=== PATIENT | female | born 1980 | race Caucasian/White ===

== ENCOUNTER 2017-01-21 22:06 | Emergency (ER) | payer SELFPAY ==
[2017-01-21 22:18] VITALS: BP 174/94
[2017-01-21] MEDS ORDERED: ASPIRIN 81 MG TABLET, CHEWABLE PO ONE (22:34)
[2017-01-21] MEDS ORDERED: ONDANSETRON 4 MG TAB.RAPDIS PO ONE (22:36)
--- NOTE | 2017-01-21 22:36 | ER Document Report ---
ED Medical Screen (RME) - General Chief Complaint: Chest Pain Stated Complaint: CHEST PAIN Time Seen by Provider: 01/21/17 22:34 Mode of Arrival: Wheelchair Information source: Patient Notes: Patient presents complaining of chest pain that she describes as a tightness that started around lunchtime today. Patient reports occasional lightheadedness. Patient does complain of some nausea. Patient denies any vomiting, cough or fever. Patient denies any personal history of heart disease. hx: Vestibular neuritis, GERD, diabetes, dyslipidemia, depression Past Medical History Renal/ Medical History: Denies: Hx Peritoneal Dialysis Physical Exam - Vital signs Vitals: Temp Pulse Resp BP Pulse Ox 98.6 F 71 20 174/94 H 98 01/21/17 22:15 01/21/17 22:15 01/21/17 22:15 01/21/17 22:15 01/21/17 22:15 - Respiratory Respiratory status: No respiratory distress Chest status: Nontender Breath sounds: Normal Chest palpation: Normal - Cardiovascular Rhythm: Regular Heart sounds: S1 appreciated, S2 appreciated Murmur: No Course - Vital Signs Vital signs: Temp Pulse Resp BP Pulse Ox 98.6 F 71 20 174/94 H 98 01/21/17 22:15 01/21/17 22:15 01/21/17 22:15 01/21/17 22:15 01/21/17 22:15
[2017-01-21 23:04] LABS: ABSOLUTE BASOPHILS # (AUTO) 0.1 10^3/uL (0.0-0.2); ABSOLUTE EOSINOPHILS # (AUTO) 0.2 10^3/uL (0.0-0.6); ABSOLUTE LYMPHOCYTES (AUTO) 3.2 10^3/uL (0.5-4.7); ABSOLUTE MONOCYTES (AUTO) 0.5 10^3/uL (0.1-1.4); ABSOLUTE NEUT (AUTO) 7.4 10^3/uL (1.7-8.2); BASOPHILS % (AUTO) 0.6 % (0-2); EOSINOPHILS % (AUTO) 1.6 % (0-6); HEMATOCRIT 40.2 % (36.0-47.0); HEMOGLOBIN 12.8 g/dL (12.0-15.5); HGB HCT DIFFERENCE -1.8; LYMPHOCYTES % (AUTO) 27.7 % (13-45); MEAN CORPUSCULAR HEMOGLOBIN 25.4 pg (27.0-33.4); MEAN CORPUSCULAR HGB CONC 31.9 g/dL (32.0-36.0); MEAN CORPUSCULAR VOLUME 79 fl (80-97); MONOCYTES % (AUTO) 4.7 % (3-13); RED BLOOD COUNT 5.06 10^6/uL (3.72-5.28); RED CELL DISTRIBUTION WIDTH 14.9 % (11.5-14.0); SEGMENTED NEUTROPHILS % (AUTO) 65.4 % (42-78); WHITE BLOOD COUNT 11.4 10^3/uL (4.0-10.5)
[2017-01-21 23:07] LABS: APPEARANCE,URINE CLEAR; BILIRUBIN,URINE NEGATIVE (NEGATIVE); GLUCOSE, URINE NEGATIVE (NEGATIVE); KETONES,URINE NEGATIVE (NEGATIVE); LEUKOCYTE ESTERASE,URINE NEGATIVE (NEGATIVE); NITRITE,URINE NEGATIVE (NEGATIVE); PROTEIN,URINE NEGATIVE (NEGATIVE); URINE SPECIFIC GRAVITY 1.002; UROBILINOGEN,URINE NEGATIVE mg/dL (<2.0)
[2017-01-21 23:22] LABS: ALANINE AMINOTRANSFERASE 40 U/L (9-52); ALBUMIN 4.4 g/dL (3.5-5.0); ALKALINE PHOSPHATASE 93 U/L (38-126); ANION GAP 15 (5-19); ASPARTATE AMINO TRANSFERASE 29 U/L (14-36); BLOOD UREA NITROGEN 10 mg/dL (7-20); CARBON DIOXIDE 26 mmol/L (22-30); CHLORIDE 98 mmol/L (98-107); CREATININE RESULT 0.53 mg/dL (0.52-1.25); GLUCOSE 108 mg/dL (75-110); SODIUM 139.3 mmol/L (137-145)
[2017-01-21 23:23] LABS: BILIRUBIN,DIRECT 0.3 mg/dL (0.0-0.4); BILIRUBIN,TOTAL 0.6 mg/dL (0.2-1.3); CREATINE KINASE 60 U/L (30-135); LIPASE 93.8 U/L (23-300); TOTAL PROTEIN 7.9 g/dL (6.3-8.2)
--- NOTE | 2017-01-21 23:25 | RADIOLOGY REPORT (SQ) ---
EXAM DESCRIPTION: CHEST PA/LAT COMPLETED DATE/TIME: 01/21/2017 11:10 pm REASON FOR STUDY: cp COMPARISON: None. EXAM PARAMETERS: NUMBER OF VIEWS: two views TECHNIQUE: Digital Frontal and Lateral radiographic views of the chest acquired. RADIATION DOSE: NA LIMITATIONS: none FINDINGS: LUNGS AND PLEURA: No opacities, masses or pneumothorax. No pleural effusion. MEDIASTINUM AND HILAR STRUCTURES: No masses or contour abnormalities. HEART AND VASCULAR STRUCTURES: Heart normal size. No evidence for failure. BONES: No acute findings. HARDWARE: None in the chest. OTHER: No other significant finding. IMPRESSION: NO SIGNIFICANT RADIOGRAPHIC FINDING IN THE CHEST. TECHNICAL DOCUMENTATION: JOB ID: [id number] [employer]- All Rights Reserved
[2017-01-21 23:33] LABS: CREATINE KINASE MB 0.64 ng/mL (<4.55); TROPONIN I < 0.012 ng/mL
--- NOTE | 2017-01-22 12:44 | EKG REPORT ---
SEVERITY:- NORMAL ECG - SINUS RHYTHM : Confirmed by: Nikki Meeks MD 22-Jan-2017 12:43:57
== END 2017-01-22 02:00 | disposition left against medical advice (07) ==
LOC: ER 22:06
DX: Z53.9 Procedure and treatment not carried out, unspecified reason (principal); R07.9 Chest pain, unspecified; R11.0 Nausea
CPT/HCPCS: 93005; 99281; 36415; 82553; 82550; 83690; 84703; 85025; 80053; 81001; 84484; 71020; 93010; S0119

== ENCOUNTER 2017-10-10 18:57 | Emergency (ER) | payer SELFPAY ==
[2017-10-10] MEDS ORDERED: ONDANSETRON HCL INJ/PF 4 MG/2 ML SDV IV ONE (19:52)
[2017-10-10] MEDS ORDERED: ASPIRIN 81 MG TABLET, CHEWABLE PO ONE (19:52)
--- NOTE | 2017-10-10 20:00 | ER Document Report ---
ED Medical Screen (RME) - General Chief Complaint: Chest Pain Stated Complaint: CHEST PAIN Time Seen by Provider: 10/10/17 19:47 Notes: RME DISCLOSURE I have seen this patient as part of a Rapid Medical Evaluation and, if applicable, placed any initially appropriate orders. The patient will be seen and fully evaluated, including a full history and physical exam, by a provider ( in Main ED or Fast Track) when a room becomes available. 37-year-old female here with complaints of nausea vomiting and diarrhea that started last night however resolved as of 6 AM this morning. Approximately 5 hours ago, she started to have midsternal chest pain and intrascapular back pain that has been constant but worse with exertion including walking. She has tried taking Motrin but it did not help. She does not have any shortness of breath. Pain is not worse with breathing. EXAM There is no chest wall tenderness - Related Data Allergies/Adverse Reactions: No Known Allergies Allergy (Unverified 10/10/17 18:59) Past Medical History - Social History Frequency of alcohol use: None Drug Abuse: None Renal/ Medical History: Denies: Hx Peritoneal Dialysis Physical Exam - Vital signs Vitals: Temp Pulse Resp BP Pulse Ox 100.0 F 94 20 104/60 99 10/10/17 19:36 10/10/17 19:36 10/10/17 19:36 10/10/17 19:36 10/10/17 19:36 Course - Vital Signs Vital signs: Temp Pulse Resp BP Pulse Ox 100.0 F 94 20 104/60 99 10/10/17 19:36 10/10/17 19:36 10/10/17 19:36 10/10/17 19:36 10/10/17 19:36
--- NOTE | 2017-10-10 20:37 | RADIOLOGY REPORT (SQ) ---
EXAM DESCRIPTION: CHEST PA/LAT COMPLETED DATE/TIME: 10/10/2017 8:30 pm REASON FOR STUDY: CP COMPARISON: 01/21/2017 EXAM PARAMETERS: NUMBER OF VIEWS: two views TECHNIQUE: Digital Frontal and Lateral radiographic views of the chest acquired. RADIATION DOSE: NA LIMITATIONS: none FINDINGS: LUNGS AND PLEURA: No opacities, masses or pneumothorax. No pleural effusion. MEDIASTINUM AND HILAR STRUCTURES: No masses or contour abnormalities. HEART AND VASCULAR STRUCTURES: Heart normal size. No evidence for failure. BONES: No acute findings. HARDWARE: None in the chest. OTHER: No other significant finding. IMPRESSION: NO SIGNIFICANT RADIOGRAPHIC FINDING IN THE CHEST. TECHNICAL DOCUMENTATION: JOB ID: [id number] [employer]- All Rights Reserved Reading location - IP/workstation name: [email or web address]
[2017-10-10] MEDS ORDERED: NORMAL SALINE 1000 ML 1,000 ML IV ONE (20:45)
[2017-10-10] MEDS ORDERED: KETOROLAC TROMETHAMINE INJ/PF 30 MG/1 ML SDV IV ONE (20:45)
--- NOTE | 2017-10-10 20:49 | ER Document Report ---
ED General - General Chief Complaint: Chest Pain Stated Complaint: CHEST PAIN Time Seen by Provider: 10/10/17 19:47 Notes: Patient is a 37-year-old female comes emergency department for chief complaint of nausea, vomiting, diarrhea, chest pain, fevers, chills, and feeling lightheaded when she stands. She states that yesterday evening she had vomiting and diarrhea for several hours, she has felt nauseated today but has not vomited since about 6 AM this morning. She states that she started getting a discomfort in her chest which is in the middle of her chest and she can feel it in between her shoulder blades, it is constant, it is not worse with breathing, she denies shortness of breath. Patient denies hematemesis or hematochezia. She denies dysuria, vaginal discharge; she just finished her menstrual cycle. She denies recent antibiotics, suspicious foods, out of country travel. Patient has been exposed to multiple sick contacts including a friend and 2 family members who have had vomiting and diarrhea. Patient has a history of "borderline diabetes", GERD, and the only medication she takes at home is Zoloft. She smokes medical marijuana, she denies smoking cigarettes or drinking. - Related Data Allergies/Adverse Reactions: No Known Allergies Allergy (Unverified 10/10/17 18:59) Past Medical History - General Information source: Patient - Social History Smoking Status: Never Smoker - Does not smoke cigarettes Frequency of alcohol use: None Drug Abuse: Marijuana Lives with: Family Family History: Reviewed & Not Pertinent Patient has suicidal ideation: No Patient has homicidal ideation: No - Past Medical History Cardiac Medical History: Reports: Hx Hypercholesterolemia Renal/ Medical History: Denies: Hx Peritoneal Dialysis GI Medical History: Reports: Hx Gastroesophageal Reflux Disease Psychiatric Medical History: Reports: Hx Depression - Immunizations Immunizations up to date: Yes Hx Diphtheria, Pertussis, Tetanus Vaccination: Yes Review of Systems - Review of Systems Constitutional: See HPI EENT: No symptoms reported Cardiovascular: See HPI Respiratory: No symptoms reported Gastrointestinal: See HPI Genitourinary: No symptoms reported Female Genitourinary: No symptoms reported Musculoskeletal: No symptoms reported Skin: No symptoms reported Hematologic/Lymphatic: No symptoms reported Neurological/Psychological: No symptoms reported Physical Exam - Vital signs Vitals: Temp Pulse Resp BP Pulse Ox 100.0 F 94 20 104/60 99 10/10/17 19:36 10/10/17 19:36 10/10/17 19:36 10/10/17 19:36 10/10/17 19:36 - General General appearance: Appears well In distress: None - HEENT Head: Normocephalic, Atraumatic Eyes: Normal Conjunctiva: Normal Extraocular movements intact: Yes Eyelashes: Normal Pupils: PERRL Mouth/Lips: Normal Mucous membranes: Dry Pharynx: Normal Neck: Normal - Respiratory Respiratory status: No respiratory distress Breath sounds: Normal. No: Decreased air movement, Wheezing - Cardiovascular Rhythm: Regular. No: Tachycardia Heart sounds: Normal auscultation, S1 appreciated, S2 appreciated - Abdominal Inspection: Normal Tenderness: Tender - Minimal generalized tenderness in the upper and lower abdomen, nonspecific, no guarding, no rebound tenderness. No: Guarding - Back Back: Normal, Nontender. No: Tender - Extremities General upper extremity: Normal inspection, Nontender, Normal ROM, Normal strength General lower extremity: Normal inspection, Nontender, Normal ROM, Normal strength. 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 On reexamination after nausea medicine and IV fluids patient states that her symptoms are somewhat better but she states that she had already been eating, should she feels great and she is ready to go home. EKG and chest x-ray are unremarkable, no tachycardia, no shortness of breath, no lotion any swelling or PERC criteria. Very low suspicion of ACS. Workup unremarkable, shows mild hypokalemia and dehydration. Patient reporting some upper abdominal discomfort , requesting something for heartburn and to go home. Patient was provided with this, discussed follow-up, return precautions in detail. Patient states satisfaction and agreement. - Vital Signs Vital signs: Temp Pulse Resp BP Pulse Ox 98.4 F 83 16 118/69 96 10/10/17 23:29 10/10/17 23:29 10/10/17 23:29 10/10/17 23:29 10/10/17 23:29 - Laboratory Result Diagrams: 10/10/17 20:40 10/10/17 20:40 Laboratory results interpreted by me: 10/10/17 10/10/17 10/10/17 20:40 20:40 22:00 Hgb 11.6 L Hct 35.8 L MCV 77 L MCH 25.1 L RDW 16.2 H Seg Neutrophils % 83.2 H Lymphocytes % 10.0 L Sodium 136.4 L Potassium 3.4 L Calcium 8.2 L Urine Protein 30 H Discharge - Discharge Clinical Impression: Nausea vomiting and diarrhea, Dehydration Condition: Stable Disposition: HOME, SELF-CARE Additional Instructions: Your symptoms and examination are most consistent with a viral illness and gastritis. Take the Zofran or Phenergan for nausea as prescribed, take the Pepcid for the gastritis as prescribed, start with clear fluids and slowly progress to bland foods and then normal diet. You may need Tylenol for chills/fevers. Your potassium was slightly low, increase potassium in your diet to supplement over the next several days. Follow-up with primary care. Return for any concerning or worsening symptoms including uncontrolled vomiting , severe pain, or any other concerning symptoms. Prescriptions: Famotidine [Pepcid 20 mg Tablet] 20 mg PO BID #12 tablet Promethazine HCl [Phenergan 25 mg Tablet] 1 - 2 tab PO Q6H PRN #20 tablet PRN Reason: Forms: Treatment of Relative/Child
[2017-10-10 21:17] LABS: ABSOLUTE LYMPHOCYTES (AUTO) 0.9 10^3/uL (0.5-4.7); ABSOLUTE MONOCYTES (AUTO) 0.6 10^3/uL (0.1-1.4); ABSOLUTE NEUT (AUTO) 7.9 10^3/uL (1.7-8.2); BASOPHILS % (AUTO) 0.2 % (0-2); EOSINOPHILS % (AUTO) 0.5 % (0-6); HEMATOCRIT 35.8 % (36.0-47.0); HEMOGLOBIN 11.6 g/dL (12.0-15.5); MEAN CORPUSCULAR HEMOGLOBIN 25.1 pg (27.0-33.4); MEAN CORPUSCULAR HGB CONC 32.4 g/dL (32.0-36.0); MEAN CORPUSCULAR VOLUME 77 fl (80-97); MONOCYTES % (AUTO) 6.1 % (3-13); PLATELET COUNT 316 10^3/uL (150-450); RED BLOOD COUNT 4.63 10^6/uL (3.72-5.28); RED CELL DISTRIBUTION WIDTH 16.2 % (11.5-14.0); SEGMENTED NEUTROPHILS % (AUTO) 83.2 % (42-78); TOTAL CELLS COUNTED % (AUTO) 100 %; WHITE BLOOD COUNT 9.4 10^3/uL (4.0-10.5)
[2017-10-10 21:41] LABS: ALANINE AMINOTRANSFERASE 30 U/L (9-52); ALKALINE PHOSPHATASE 68 U/L (38-126); ANION GAP 12 (5-19); ASPARTATE AMINO TRANSFERASE 16 U/L (14-36); BILIRUBIN,DIRECT 0.4 mg/dL (0.0-0.4); BILIRUBIN,TOTAL 0.7 mg/dL (0.2-1.3); BLOOD UREA NITROGEN 19 mg/dL (7-20); CALCIUM 8.2 mg/dL (8.4-10.2); CARBON DIOXIDE 24 mmol/L (22-30); CHLORIDE 100 mmol/L (98-107); GLUCOSE 102 mg/dL (75-110); LIPASE 37.6 U/L (23-300); POTASSIUM 3.4 mmol/L (3.6-5.0); SODIUM 136.4 mmol/L (137-145); TOTAL PROTEIN 6.7 g/dL (6.3-8.2)
--- NOTE | 2017-10-10 22:05 | EKG REPORT ---
SEVERITY:- BORDERLINE ECG - SINUS RHYTHM BORDERLINE T ABNORMALITIES, DIFFUSE LEADS BORDERLINE PROLONGED QT INTERVAL : Confirmed by: Otto Marshall 10-Oct-2017 22:04:32
[2017-10-10 22:18] LABS: APPEARANCE,URINE CLEAR; BILIRUBIN,URINE NEGATIVE (NEGATIVE); COLOR,URINE YELLOW; GLUCOSE, URINE NEGATIVE (NEGATIVE); KETONES,URINE NEGATIVE (NEGATIVE); LEUKOCYTE ESTERASE,URINE NEGATIVE (NEGATIVE); NITRITE,URINE NEGATIVE (NEGATIVE); PROTEIN,URINE 30 mg/dL (NEGATIVE); URINE SPECIFIC GRAVITY 1.035; UROBILINOGEN,URINE NEGATIVE mg/dL (<2.0)
[2017-10-10] MEDS ORDERED: ONDANSETRON ODT 4 MG TAB (6 TAB/ER DISP) PO PRN (22:53)
[2017-10-10] MEDS ORDERED: FAMOTIDINE 20 MG TABLET PO ONE (22:53)
[2017-10-10] MEDS ORDERED: SUCRALFATE 1 GM TABLET PO ONE (22:53)
[2017-10-10] MEDS ORDERED: NORMAL SALINE 1000 ML 500 ML IV ONE (22:53)
[2017-10-10 23:33] VITALS: BP 118/69
== END 2017-10-10 23:35 | disposition home or self-care (01) ==
LOC: ER 18:57
DX: R07.9 Chest pain, unspecified (principal); R11.2 Nausea with vomiting, unspecified; R19.7 Diarrhea, unspecified; E87.6 Hypokalemia; E86.0 Dehydration; R10.817 Generalized abdominal tenderness; R50.9 Fever, unspecified; R42 Dizziness and giddiness; F12.10 Cannabis abuse, uncomplicated; Z79.899 Other long term (current) drug therapy
CPT/HCPCS: 93005; 99285; 96361; 96374; 96375; 36415; 83690; 85025; 81025; 80053; 81001; 84484; 71046; 93010; J1885; J2405; J7030

== ENCOUNTER 2018-08-23 13:44 | Emergency (ER) | payer SELFPAY ==
--- NOTE | 2018-08-23 14:18 | ER Document Report ---
ED Medical Screen (RME) - General Chief Complaint: High Blood Pressure Stated Complaint: BLOOD PRESSURE ISSUES Time Seen by Provider: 08/23/18 13:59 Notes: For the past week, patient says she is having dizzy spells that come and go. She is also been having her heart beating abnormally, feels like it is beating "backwards". That has been occurring rather constantly over the past week. She has a history of high blood pressure and was admitted to the hospital in [place] for 10 days a year or so ago to get her blood pressure under control. Unfortunately, she cannot afford health care and does not have any health insurance and has not been able to continue taking her medications so at this time she is not on any blood pressure medicines. Her blood pressures have been running high and this morning it was 163/112 at home in the came for evaluation. Patient is also a diabetic who is on metformin thousand milligrams a day and has not been able to afford that medication either. She is not taking any medications at this time except some herbal mixture. She has a history of high cholesterol. No known problems with her thyroid. TRAVEL OUTSIDE OF THE [place] IN LAST 30 DAYS: No - Related Data Allergies/Adverse Reactions: No Known Allergies Allergy (Unverified 10/10/17 18:59) Past Medical History - Past Medical History Cardiac Medical History: Reports: Hx Hypercholesterolemia Renal/ Medical History: Denies: Hx Peritoneal Dialysis GI Medical History: Reports: Hx Gastroesophageal Reflux Disease Psychiatric Medical History: Reports: Hx Depression - Immunizations Immunizations up to date: Yes Hx Diphtheria, Pertussis, Tetanus Vaccination: Yes Physical Exam - Vital signs Vitals: Temp Pulse Resp BP Pulse Ox 99.2 F 93 18 151/82 H 99 08/23/18 13:48 08/23/18 13:48 08/23/18 13:48 08/23/18 13:48 08/23/18 13:48 Course - Vital Signs Vital signs: Temp Pulse Resp BP Pulse Ox 99.2 F 93 18 151/82 H 99 08/23/18 13:48 08/23/18 13:48 08/23/18 13:48 08/23/18 13:48 08/23/18 13:48
[2018-08-23 14:43] LABS: ABSOLUTE BASOPHILS # (AUTO) 0.1 10^3/uL (0.0-0.2); ABSOLUTE EOSINOPHILS # (AUTO) 0.2 10^3/uL (0.0-0.6); ABSOLUTE LYMPHOCYTES (AUTO) 2.4 10^3/uL (0.5-4.7); ABSOLUTE MONOCYTES (AUTO) 0.4 10^3/uL (0.1-1.4); ABSOLUTE NEUT (AUTO) 7.8 10^3/uL (1.7-8.2); BASOPHILS % (AUTO) 0.7 % (0-2); EOSINOPHILS % (AUTO) 1.5 % (0-6); HEMATOCRIT 39.1 % (36.0-47.0); HEMOGLOBIN 12.9 g/dL (12.0-15.5); LYMPHOCYTES % (AUTO) 21.7 % (13-45); MEAN CORPUSCULAR HEMOGLOBIN 25.2 pg (27.0-33.4); MEAN CORPUSCULAR HGB CONC 33.1 g/dL (32.0-36.0); MEAN CORPUSCULAR VOLUME 76 fl (80-97); PLATELET COUNT 424 10^3/uL (150-450); RED BLOOD COUNT 5.13 10^6/uL (3.72-5.28); RED CELL DISTRIBUTION WIDTH 15.4 % (11.5-14.0); SEGMENTED NEUTROPHILS % (AUTO) 72.1 % (42-78); TOTAL CELLS COUNTED % (AUTO) 100 %; WHITE BLOOD COUNT 10.9 10^3/uL (4.0-10.5)
[2018-08-23] MEDS ORDERED: NORMAL SALINE 1000 ML 1,000 ML IV ONE (14:44)
--- NOTE | 2018-08-23 14:44 | RADIOLOGY REPORT (SQ) ---
EXAM DESCRIPTION: CHEST 2 VIEWS COMPLETED DATE/TIME: 08/23/2018 2:33 pm REASON FOR STUDY: Heart palpitations, dizzy, high blood pressure COMPARISON: 01/21/2017 TECHNIQUE: Frontal and lateral radiographic views of the chest acquired. NUMBER OF VIEWS: Two view. LIMITATIONS: None. FINDINGS: LUNGS AND PLEURA: No pneumothorax. No consolidation or pleural effusion. MEDIASTINUM AND HILAR STRUCTURES: Stable. HEART AND VASCULAR STRUCTURES: Stable. BONES: No acute findings. HARDWARE: None in the chest. OTHER: No other significant finding. IMPRESSION: NO ACUTE FINDINGS. TECHNICAL DOCUMENTATION: JOB ID: [id number] 2010 [employer] All Rights Reserved Reading location - IP/workstation name: [email or web address]
[2018-08-23 14:49] LABS: ALANINE AMINOTRANSFERASE 23 U/L (9-52); ALBUMIN 4.7 g/dL (3.5-5.0); ALKALINE PHOSPHATASE 86 U/L (38-126); ANION GAP 8 (5-19); ASPARTATE AMINO TRANSFERASE 20 U/L (14-36); BILIRUBIN,DIRECT 0.1 mg/dL (0.0-0.4); BILIRUBIN,TOTAL 0.4 mg/dL (0.2-1.3); BLOOD UREA NITROGEN 11 mg/dL (7-20); CALCIUM 9.4 mg/dL (8.4-10.2); CARBON DIOXIDE 27 mmol/L (22-30); CHLORIDE 106 mmol/L (98-107); GLUCOSE 123 mg/dL (75-110); SODIUM 141.2 mmol/L (137-145); TOTAL PROTEIN 7.6 g/dL (6.3-8.2)
[2018-08-23 15:37] LABS: CREATINE KINASE MB 0.23 ng/mL (<4.55)
[2018-08-23 15:38] LABS: TROPONIN I < 0.012 ng/mL
[2018-08-23 15:55] LABS: THYROID STIMULATING HORMONE 0.93 uIU/mL (0.47-4.68)
[2018-08-23 16:15] VITALS: BP 132/82
--- NOTE | 2018-08-23 16:16 | ER Document Report ---
ED General - General Chief Complaint: High Blood Pressure Stated Complaint: BLOOD PRESSURE ISSUES Time Seen by Provider: 08/23/18 13:59 Notes: Patient is a 38-year-old female that presents to the emergency department for chief complaint of palpitations and elevated blood pressure. Patient states that over the past week, she is been feeling her heart beat out of her chest at times, and will come and go throughout the day, in the last less than a minute, and at the time she will feel light headed, and nauseous, but without vomiting. She states she has had a lot of stress most recently, and arguments with her daughter, that was visiting in town, and thinks that may be related, but she wanted to be evaluated. She states she has had symptoms like this in the past, but they are much less frequent, and this time is concerning her more. She is not currently taking any medications, she states she moved here from out of town, and does not currently have insurance, she was previously on medication for diabetes, hypertension, and high cholesterol as well as fibromyalgia. She currently denies having any chest pain, shortness of breath, nausea, vomiting, abdominal pain, dysuria or hematuria and denies any recent fevers, chills or nig ht sweats. Past Medical History: Hypertension, diabetes mellitus, hyperlipidemia, fibromyalgia Past Surgical History: Tubal ligation, , carpal tunnel release, tonsillectomy Social History: Denies tobacco, alcohol or drug use. Family History: Reviewed and noncontributory for presenting illness Allergies: Reviewed, see documented allergy list. REVIEW OF SYSTEMS: Other than noted above, the 12 point review of systems was reviewed with the patient and were negative, all pertinent findings are included in the HPI. PHYSICAL EXAMINATION: Vital signs reviewed, nursing noted reviewed. GENERAL: Well-appearing, well-nourished and in no acute distress. HEAD: Atraumatic, normocephalic. EYES: Eyes appear normal, extraocular movements intact, sclera anicteric, conjunctiva are normal. ENT: nares patent, oropharynx clear without exudates. Moist mucous membranes. NECK: Normal range of motion, supple without lymphadenopathy LUNGS: Breath sounds clear to auscultation bilaterally and equal. No wheezes rales or rhonchi. HEART: Regular rate and rhythm without murmurs ABDOMEN: Soft, nontender, normoactive bowel sounds. No rebound, guarding, or rigidity. No masses appreciated. EXTREMITIES: Nontender, good range of motion, no pitting or edema. NEUROLOGICAL: No focal neurological deficits. Moves all extremities spontaneously Motor and sensory grossly intact on exam. PSYCH: Mildly anxious on exam SKIN: Warm, Dry, normal turgor, no rashes or lesions noted on exposed skin TRAVEL OUTSIDE OF THE [place] IN LAST 30 DAYS: No - Related Data Allergies/Adverse Reactions: No Known Allergies Allergy (Unverified 10/10/17 18:59) Past Medical History - Social History Smoking Status: Unknown if Ever Smoked Chew tobacco use (# tins/day): No Frequency of alcohol use: None Drug Abuse: Marijuana Family History: Reviewed & Not Pertinent Patient has suicidal ideation: No Patient has homicidal ideation: No - Past Medical History Cardiac Medical History: Reports: Hx Hypercholesterolemia, Hx Hypertension Endocrine Medical History: Reports: Hx Diabetes Mellitus Type 2 Renal/ Medical History: Denies: Hx Peritoneal Dialysis GI Medical History: Reports: Hx Gastroesophageal Reflux Disease Psychiatric Medical History: Reports: Hx Depression Past Surgical History: Reports: Hx Section, Hx Orthopedic Surgery - carpel tunnel, Hx Tonsillectomy - Immunizations Immunizations up to date: Yes Hx Diphtheria, Pertussis, Tetanus Vaccination: Yes Physical Exam - Vital signs Vitals: Temp Pulse Resp BP Pulse Ox 99.2 F 93 18 151/82 H 99 08/23/18 13:48 08/23/18 13:48 08/23/18 13:48 08/23/18 13:48 08/23/18 13:48 Course - Re-evaluation Re-evalutation: Patient seen and examined vital signs reviewed. Laboratory data and imaging were ordered as appropriate for the patient's presenting symptoms and complaint, with consideration of any critical or life threatening conditions that may be associated with their obtained history and exam as noted above. Patient was treated with IV fluid Results were reviewed when available and demonstrated unremarkable workup, EKG was unremarkable, and no signs of ischemia as noted, chest x-ray negative, troponin negative, patient was monitored on telemetry, without acute events or tachydysrhythmias, I did perform a bedside limited echo, there is no pericardial effusion, and EF is estimated to be approximately 55%. The patient was re-evaluated and was stable Evaluation was most consistent with palpitations, discussed with her that this may be related to her current stress, and will prescribe her hydroxyzine to see if it will help with her sleep, and have her follow-up with her primary care physician of which she is given referral to. Results were discussed with the patient at this point, after careful consideration I feel that that patient can be discharged from the emergency department, the patient was educated treatments and reasons to return to the [facility] department based on their presumed diagnosis as noted above, they were advised to followup with a primary care physician in 2-3 days. Patient was agreeable to plan of care. *Note is created using voice recognition software and may contain spelling, syntax or grammatical errors. Laboratory 08/23/18 08/23/18 08/23/18 14:21 14:21 14:21 WBC 10.9 H RBC 5.13 Hgb 12.9 Hct 39.1 MCV 76 L MCH 25.2 L MCHC 33.1 RDW 15.4 H Plt Count 424 Seg Neutrophils % 72.1 Lymphocytes % 21.7 Monocytes % 4.0 Eosinophils % 1.5 Basophils % 0.7 Absolute Neutrophils 7.8 Absolute Lymphocytes 2.4 Absolute Monocytes 0.4 Absolute Eosinophils 0.2 Absolute Basophils 0.1 Sodium 141.2 Potassium 4.0 Chloride 106 Carbon Dioxide 27 Anion Gap 8 BUN 11 Creatinine 0.48 L Est GFR ( Amer) > 60 Est GFR (Non-Af Amer) > 60 Glucose 123 H Calcium 9.4 Total Bilirubin 0.4 Direct Bilirubin 0.1 Neonat Total Bilirubin Not Reportable Neonat Direct Bilirubin Not Reportable Neonat Indirect Bili Not Reportable AST 20 ALT 23 Alkaline Phosphatase 86 CK-MB (CK-2) Troponin I Total Protein 7.6 Albumin 4.7 TSH Free T4 Serum HCG, Qual NEGATIVE 08/23/18 08/23/18 14:21 14:21 WBC RBC Hgb Hct MCV MCH MCHC RDW Plt Count Seg Neutrophils % Lymphocytes % Monocytes % Eosinophils % Basophils % Absolute Neutrophils Absolute Lymphocytes Absolute Monocytes Absolute Eosinophils Absolute Basophils Sodium Potassium Chloride Carbon Dioxide Anion Gap BUN Creatinine Est GFR ( Amer) Est GFR (Non-Af Amer) Glucose Calcium Total Bilirubin Direct Bilirubin Neonat Total Bilirubin Neonat Direct Bilirubin Neonat Indirect Bili AST ALT Alkaline Phosphatase CK-MB (CK-2) 0.23 Troponin I < 0.012 Total Protein Albumin TSH 0.93 Free T4 1.00 Serum HCG, Qual Chest X-Ray 08/23/18 14:03 IMPRESSION: NO ACUTE FINDINGS. - Vital Signs Vital signs: Temp Pulse Resp BP Pulse Ox 99.1 F 93 17 132/82 H 100 08/23/18 16:25 08/23/18 13:48 08/23/18 16:01 08/23/18 16:01 08/23/18 16:01 - Laboratory Result Diagrams: 08/23/18 14:21 08/23/18 14:21 Laboratory results interpreted by me: 08/23/18 08/23/18 14:21 14:21 WBC 10.9 H MCV 76 L MCH 25.2 L RDW 15.4 H Creatinine 0.48 L Glucose 123 H - EKG Interpretation by Me Additional EKG results interpreted by me: 08/23/18 16:16 EKG demonstrates sinus rhythm with a ventricular rate of 92 bpm, normal axis, QTC 476 ms, no evidence of acute ischemia on this EKG, compared with prior EKG from 10/10/2017, without significant change. Discharge - Discharge Clinical Impression: Heart palpitations Condition: Stable Disposition: HOME, SELF-CARE Instructions: Palpitations (Irregular or Rapid Heartrate) ([facility]) Additional Instructions: Please follow-up with a mining captain, one is been provided with your discharge paperwork, if you have any worsening symptoms, or things are not improving, do not hesitate to return to the emergency department, he should also follow-up with a primary care physician, 2 numbers have been listed, and he can take the Atarax if needed to see if will help with some of your symptoms. Prescriptions: Hydroxyzine HCl [Atarax 25 mg Tablet] 1 tab PO Q6H PRN #25 tablet PRN Reason: Anxiety Forms: Elevated Blood Pressure, Return to Work Referrals: [facility] [Provider Group] - Follow up as needed [facility] [Provider Group] - Follow up as needed MUKUND SAENZ MD [ACTIVE STAFF] - Follow up as needed
--- NOTE | 2018-08-23 18:35 | EKG REPORT ---
SEVERITY:- NORMAL ECG - SINUS RHYTHM : Confirmed by: Otto Marshall 23-Aug-2018 18:34:53
== END 2018-08-23 16:25 | disposition home or self-care (01) ==
LOC: ER 13:44
DX: R00.2 Palpitations (principal); I10 Essential (primary) hypertension; R42 Dizziness and giddiness; R11.0 Nausea; E11.9 Type 2 diabetes mellitus without complications; E78.00 Pure hypercholesterolemia, unspecified; E78.5 Hyperlipidemia, unspecified
CPT/HCPCS: 93005; 99284; 96360; 36415; 84439; 82553; 84443; 84703; 85025; 80053; 84484; 71046; 93010; J7030

== ENCOUNTER 2019-09-13 16:46 | Emergency (ER) | payer SELFPAY ==
--- NOTE | 2019-09-13 18:34 | RADIOLOGY REPORT (SQ) ---
EXAM DESCRIPTION: CHEST 2 VIEWS COMPLETED DATE/TIME: 09/13/2019 6:15 pm REASON FOR STUDY: cough x2 weeks COMPARISON: Chest x-ray 08/23/2018, 10/10/2017. EXAM PARAMETERS: NUMBER OF VIEWS: two views TECHNIQUE: Digital Frontal and Lateral radiographic views of the chest acquired. RADIATION DOSE: NA LIMITATIONS: none FINDINGS: LUNGS AND PLEURA: No consolidation, pneumothorax or pleural effusion. MEDIASTINUM AND HILAR STRUCTURES: No masses or contour abnormalities. HEART AND VASCULAR STRUCTURES: Heart normal size. No evidence for failure. BONES: No acute findings. HARDWARE: None in the chest. IMPRESSION: NO ACUTE RADIOGRAPHIC FINDING IN THE CHEST. TECHNICAL DOCUMENTATION: JOB ID: [id number] 2010 [employer]- All Rights Reserved Reading location - IP/workstation name: [email or web address]
--- NOTE | 2019-09-13 18:56 | ER Document Report ---
HPI - HPI Time Seen by Provider: 09/13/19 17:44 Pain Level: Denies Notes: 39-year-old female patient presenting with cough x2 weeks. Patient also reports her child was diagnosed with strep throat yesterday. Patient denies any fevers. States that she believes she has bronchitis. Patient reports taking multiple [id number] medications with minimal relief. Denies any nausea, vomiting, diarrhea, abdominal pain dysuria or urinary frequency. - REPRODUCTIVE Reproductive: DENIES: : Past Medical History - General Information source: Patient - Social History Smoking Status: Never Smoker Family History: Reviewed & Not Pertinent Patient has suicidal ideation: No Patient has homicidal ideation: No - Past Medical History Cardiac Medical History: Reports: Hx Hypercholesterolemia, Hx Hypertension Endocrine Medical History: Reports: Hx Diabetes Mellitus Type 2 Renal/ Medical History: Denies: Hx Peritoneal Dialysis GI Medical History: Reports: Hx Gastroesophageal Reflux Disease Psychiatric Medical History: Reports: Hx Depression Past Surgical History: Reports: Hx Section, Hx Orthopedic Surgery - carpel tunnel, Hx Tonsillectomy - Immunizations Immunizations up to date: Yes Hx Diphtheria, Pertussis, Tetanus Vaccination: Yes Vertical Provider Document - CONSTITUTIONAL Notes: PHYSICAL EXAMINATION: GENERAL: Well-appearing, well-nourished and in no acute distress. HEAD: Atraumatic, normocephalic. EYES: Pupils equal round and reactive to light, extraocular movements intact, conjunctiva are normal. ENT: Nares patent, oropharynx clear without exudates. Moist mucous membranes. NECK: Normal range of motion, supple without lymphadenopathy LUNGS: Breath sounds clear to auscultation bilaterally and equal. No wheezes ra les or rhonchi. Bronchospasm noted. HEART: Regular rate and rhythm without murmurs ABDOMEN: Soft, nontender, nondistended abdomen. No guarding, no rebound. No masses appreciated. Female : deferred Musculoskeletal: Normal range of motion, no pitting or edema. No cyanosis. NEUROLOGICAL: Cranial nerves grossly intact. Normal speech, normal gait. Normal sensory, motor exams PSYCH: Normal mood, normal affect. SKIN: Warm, Dry, normal turgor, no rashes or lesions noted. - INFECTION CONTROL TRAVEL OUTSIDE OF THE [place] IN LAST 30 DAYS: No Course - Re-evaluation Re-evalutation: Patient appears well, nontoxic, vital signs within normal limits. Patient has had ongoing cough for greater than 2 weeks, she has been taking all the appropriate medications at home. She will be started on prednisone, amoxicillin and Tessalon Perles. Patient does have history of bronchitis. Patient will follow-up with her primary care provider. - Vital Signs Vital signs: Temp Pulse Resp BP Pulse Ox 98.8 F 89 20 144/75 H 98 09/13/19 17:40 09/13/19 17:40 09/13/19 17:40 09/13/19 17:40 09/13/19 17:40 Discharge - Discharge Clinical Impression: Bronchitis Condition: Stable Disposition: HOME, SELF-CARE Additional Instructions: You were seen for symptoms most consistent with bronchitis. This can take up to 12 weeks to fully resolve. Please take all medications as prescribed. Please follow-up with your primary doctor in the next 2-3 days. Return if you develop worsening cough, vomiting, fever >100.4, pass out, begin coughing blood, or have any other symptoms that are concerning to you. Please use the medications prescribed today as directed. Prescriptions: Benzonatate [Tessalon Perles 100 mg Capsule] 1 - 2 tab PO Q8HP PRN #30 capsule PRN Reason: Amoxicillin 1 tab PO TID #30 tab Prednisone [Deltasone 20 mg Tablet] 3 tab PO DAILY 5 Days #15 tablet Forms: Return to Work
[2019-09-13 19:04] VITALS: BP 140/83
== END 2019-09-13 19:14 | disposition home or self-care (01) ==
LOC: ER 16:46
DX: J40 Bronchitis, not specified as acute or chronic (principal); R05 Cough; I10 Essential (primary) hypertension; E11.9 Type 2 diabetes mellitus without complications; Z20.818 Contact with and (suspected) exposure to other bacterial communicable diseases
CPT/HCPCS: 71046; 87070; 87880; 99283